=== PATIENT | female | born 1970 ===

== ENCOUNTER 2021-07-02 09:18 | Inpatient (IN) | payer OTHER ==
[~2021-07-02] VITALS: Ht 152.4 cm; Wt 80.7 kg
[2021-07-02] MEDS ORDERED: METFORMIN HCL1000 M2 PO (10:04)
[2021-07-04] MEDS ORDERED: GLIMEPIRIDE4 M1 (08:31)
[2021-07-04] MEDS ORDERED: TRAMADOL HCL50 MG (08:31)
[2021-07-04] MEDS ORDERED: FARXIGA10 MG (08:31)
[2021-07-04] MEDS ORDERED: FAMOTIDINE40 MG (08:31)
[2021-07-04] MEDS ORDERED: ATORVASTATIN CA20 MG (08:32)
[2021-07-04] MEDS ORDERED: GABAPENTIN600 MG (08:32)
[2021-07-04] MEDS ORDERED: PANTOPRAZOLE SO40 MG (08:32)
== END 2021-07-07 19:55 | disposition home or self-care (01) | DRG 740 ==
LOC: OB/GYN 07-03 07:00 → O/R 07-03 07:35 → OB/GYN 07-03 12:15
PROVIDERS: ADMIT Specialist; ATTEND Specialist
PROC: 0UT20ZZ Resection of Bilateral Ovaries, Open Approach (ICD-10-PCS; 2021-07-03)
PROC: 0UT70ZZ Resection of Bilateral Fallopian Tubes, Open Approach (ICD-10-PCS; 2021-07-03)
PROC: 07BC0ZZ Excision of Pelvis Lymphatic, Open Approach (ICD-10-PCS; 2021-07-03)
PROC: 07BD0ZZ Excision of Aortic Lymphatic, Open Approach (ICD-10-PCS; 2021-07-03)
PROC: 0DBU0ZZ Excision of Omentum, Open Approach (ICD-10-PCS; 2021-07-03)
PROC: 0UT90ZZ Resection of Uterus, Open Approach (ICD-10-PCS; principal; 2021-07-03 07:00)
DX: C54.1 Malignant neoplasm of endometrium (principal); C79.82 Secondary malignant neoplasm of genital organs; N99.89 Other postprocedural complications and disorders of genitourinary system; R33.8 Other retention of urine; N80.1 Endometriosis of ovary; E11.9 Type 2 diabetes mellitus without complications; J45.909 Unspecified asthma, uncomplicated; E66.01 Morbid (severe) obesity due to excess calories